=== PATIENT | female | born 1975 | race Two or more races ===

== ENCOUNTER 2016-12-06 11:13 | Emergency (ER) | payer MEDICAID ==
--- NOTE | 2016-12-06 13:05 | EDPHY ---
HPI/HX/ROS/PE/MDM Narrative: CHIEF COMPLAINT: Diarrhea HPI: This patient is a 41 year old female complaining of persistent diarrhea onset nine days ago. She visited her primary care physician 11/29/16, who recommended Imodium for symptom relief, and asked her to follow up in one week. She has taken nine doses of Imodium. Last night when trying to sleep, she developed cramping in her buttocks, legs, arms. She has been trying to not eat or drink much lately, and suspects she is dehydrated. She denies blood in her stool, fever, dysuria, or vomiting. She has no current pain. REVIEW OF SYSTEMS: Aside from elements discussed in the HPI, a comprehensive 10-point review of systems was reviewed and is negative. PMH: Back pain, mental health diagnoses, cervical cancer, c-sections, cholecystectomy SOCIAL HISTORY: No alcohol or drug use. Primary care provider at [facility]. Lives in [place]. PHYSICAL EXAM: General:Patient is alert, in no acute distress. ENT:Eyes are normal to inspection. ENT inspection normal. Neck: Normal inspection. Full range of motion. Respiratory:No respiratory distress. Breath sounds normal bilaterally. Cardiovascular: Regular rate and rhythm. Strong peripheral pulses. Normal cap refill. Abdomen:The abdomen is nontender to palpation. There are no peritoneal signs. There are normal bowel sounds. Back: Normal to inspection. No tenderness to palpation. Skin: Normal color. No rash. Warm and dry. Extremities: Normal appearance. Full range of motion. Neuro: Oriented x3. Normal motor function. Normal sensory function. Portions of this note were transcribed by an ED scribe. I personally performed the history, physical exam, and medical decision making; and confirm the accuracy of the information in the transcribed note. ED Course: Plan for labs including CBC, BMP, BHCG. Labs unremarkable. Patient unable to provide a stool sample at this time. Plan to discharge home in good condition. The patient will follow up with her primary care provider for continued evaluation. MDM: This is a non-toxic healthy-appearing female with a benign abdomen and complaint of diarrhea. She was unable to provide us a stool sample during her multi-hour ED stay. She is tolerating fluids by mouth and her vitals are normal. I have a low suspicion for abdominal emergency. I think she is safe for continued outpatient workup. - Data Points Laboratory Results: Laboratory Results 12/06/16 14:15 12/06/16 14:45 12/06/16 12/06/16 12/06/16 14:45 14:45 14:15 WBC 11.33 10^3/uL H 10^3/uL (3.80-9.50) RBC 4.69 10^6/uL 10^6/uL (4.18-5.33) Hgb 14.1 g/dL g/dL (12.6-16.3) Hct 43.0 % % (38.0-47.0) MCV 91.7 fL fL (81.5-99.8) MCH 30.1 pg pg (27.9-34.1) MCHC 32.8 g/dL g/dL (32.4-36.7) RDW 13.7 % % (11.5-15.2) Plt Count 218 10^3/uL 10^3/uL (150-400) MPV 9.8 fL fL (8.7-11.7) Neut % (Auto) 63.5 % % (39.3-74.2) Lymph % (Auto) 28.9 % % (15.0-45.0) [place] % (Auto) 5.8 % % (4.5-13.0) Eos % (Auto) 1.1 % % (0.6-7.6) Baso % (Auto) 0.4 % % (0.3-1.7) Nucleat RBC Rel Count 0.0 % % (0.0-0.2) Absolute Neuts (auto) 7.19 10^3/uL H 10^3/uL (1.70-6.50) Absolute Lymphs (auto) 3.28 10^3/uL H 10^3/uL (1.00-3.00) Absolute Monos (auto) 0.66 10^3/uL 10^3/uL (0.30-0.80) Absolute Eos (auto) 0.12 10^3/uL 10^3/uL (0.03-0.40) Absolute Basos (auto) 0.05 10^3/uL 10^3/uL (0.02-0.10) Absolute Nucleated RBC 0.00 10^3/uL 10^3/uL (0-0.01) Immature Gran % 0.3 % % (0.0-1.1) Immature Gran # 0.03 10^3/uL 10^3/uL (0.00-0.10) Sodium 138 mEq/L mEq/L (134-144) Potassium 3.6 mEq/L mEq/L (3.5-5.2) Chloride 108 mEq/L mEq/L (97-110) Carbon Dioxide 19 mEq/l L mEq/l (22-31) Anion Gap 11 mEq/L mEq/L (8-16) BUN 10 mg/dL mg/dL (7-23) Creatinine 0.7 mg/dL mg/dL (0.6-1.0) Estimated GFR > 60 Glucose 85 mg/dL mg/dL (70-100) Calcium 9.1 mg/dL mg/dL (8.5-10.4) Beta HCG, Qual NEGATIVE General Time Seen by Provider: 12/06/16 12:54 Initial Vital Signs: Initial Vital Signs Temperature (C) 36.5 C 12/06/16 11:20 Heart Rate 76 12/06/16 11:20 Respiratory Rate 16 12/06/16 11:20 Blood Pressure 119/100 H 12/06/16 11:20 O2 Sat (%) 94 12/06/16 11:20 O2 Delivery Mode Room Air Allergies/Adverse Reactions: No Known Allergies Allergy (Verified 12/06/16 11:27) Home Medications: Medication Instructions Recorded Wellbutrin 100mg (RX) 05/26/15 traZODONE 05/26/15 Gabapentin [Neurontin 400 MG (*)] 600 mg PO 12/06/16 busPIRone [Buspar (*)] 10 mg PO 12/06/16 Departure - Departure Disposition: Home, Routine, Self-Care Clinical Impression: Diarrhea Condition: Good Instructions: Acute Diarrhea (ED) Additional Instructions: 1. Follow up with your primary care provider this week for continued evaluation of symptoms. 2. Stay well hydrated. 3. Return to the Emergency Department for uncontrollable diarrhea or vomiting, severe abdominal pain, fever, chills, or other worsening of condition. Referrals: Nelly Cardoza PA [Primary Care Provider] - As per Instructions Report Scribed for: Hardy Ricks Report Scribed by: Leyla Sorto Date of Report: 12/06/16 Time of Report: 15:01
[2016-12-06 14:26] LABS: % IMMATURE GRANULYOCYTES 0.3 % (0.0-1.1); ABSOLUTE IMMATURE GRANULOCYTES 0.03 10^3/uL (0.00-0.10); ADD DIFF? NO; ADD MORPH? NO; ADD SCAN? NO; ATYPICAL LYMPHOCYTE FLAG 0 (0-99); FRAGMENT RBC FLAG 0 (0-99); HEMOGLOBIN 14.1 g/dL (12.6-16.3); LEFT SHIFT FLG 0 (0-99); LIPEMIA HEMOLYSIS FLAG 80 (0-99); MEAN CELL HEMOGLOBIN 30.1 pg (27.9-34.1); MEAN CELL HEMOGLOBIN CONCENTR. 32.8 g/dL (32.4-36.7); MEAN CELL VOLUME 91.7 fL (81.5-99.8); MEAN PLATELET VOLUME 9.8 fL (8.7-11.7); PLATELET CLUMPS FLAG 10 (0-99); PLATELET COUNT 218 10^3/uL (150-400); RED BLOOD CELL COUNT 4.69 10^6/uL (4.18-5.33); RED CELL DISTRIBUTION WIDTH 13.7 % (11.5-15.2)
[2016-12-06 15:14] LABS: ANION GAP 11 mEq/L (8-16); CALCIUM 9.1 mg/dL (8.5-10.4); CARBON DIOXIDE 19 mEq/l (22-31); CHLORIDE 108 mEq/L (97-110); CREATININE 0.7 mg/dL (0.6-1.0); GLOMERULAR FILTRATION RATE > 60; GLUCOSE 85 mg/dL (70-100); POTASSIUM 3.6 mEq/L (3.5-5.2); SODIUM 138 mEq/L (134-144)
[2016-12-06 16:28] VITALS: BP 141/87; PULSE 68; RESP 18; TEMP 97.9; O2SAT 97
== END 2016-12-06 16:28 | disposition home or self-care (01) ==
DX: R19.7 Diarrhea, unspecified (principal); Z85.41 Personal history of malignant neoplasm of cervix uteri

== ENCOUNTER 2017-02-01 10:46 | Emergency (ER) | payer MEDICAID ==
[2017-02-01 10:50] VITALS: BP 122/76; PULSE 74; RESP 18; TEMP 98.6; O2SAT 97
--- NOTE | 2017-02-01 11:13 | EDPHY ---
H & P Time Seen by Provider: 02/01/17 11:07 HPI/ROS: CHIEF COMPLAINT: "I dislocated my knee HISTORY OF PRESENT ILLNESS: 41-year-old female prior history of left patellar subluxations states that she was on the bus this morning, sat down, twisted and felt her left patella sublux. She immediately reduced it. She is complaining of continued pain but is able to bear weight. Never followed up with Orthopedics. No paresthesia. No direct trauma or fall. PHYSICAL EXAM (Prior to examination, patient consented to physical exam, hands were washed and my usual and customary physical exam procedures followed) 1) GENERAL: Well-developed, well-nourished, alert and oriented. Appears to be in no acute distress. 2) HEAD: Normocephalic 3) HEENT: Pupils equal, round, reactive to light bilaterally. 4) LUNGS: Breathing comfortably. 5) MUSCULOSKELETAL: Exam of the left knee shows patella midline, no evidence of patella [place] or [place] . Full flexion extension albeit with some discomfort to the medial aspect of the knee. . Compartments are soft. 6) SKIN: intact no tenting 7) VASCULAR: DP,PT pulses and cap refill present and brisk distally DIFFERENTIAL DIAGNOSIS: in no particular order including but not limited to fracture, sprain, compartment syndrome, septic arthritis, DVT Procedure: Splint A knee immobilizer splint was applied by ER crown and bridge technician. After application of the splint I returned and re-examined the patient. The splint was adequately immobilizing the joint and distal to the splint the patient's circulation and sensation were intact. Patient shows no signs of compartment syndrome. Was given orthopedic precautions. MEDICAL DECISION MAKING Serial evaluations performed on patient. No evidence of compartment syndrome. No evidence of patellar subluxation or knee dislocation. I discussed the limitations of x-ray in diagnosis of knee pain and injury. At this time I do not think that emergent MRI is currently indicated. However, I have recommended follow-up with Orthopedic surgery and provided this referral information. Informed the patient that outpatient MRI may be indicated. Doubt septic arthritis. Doubt compartment syndrome. Doubt DVT. Smoking Status: Current every day smoker Constitutional: Initial Vital Signs Temperature (C) 37 C 02/01/17 10:47 Heart Rate 74 02/01/17 10:47 Respiratory Rate 18 02/01/17 10:47 Blood Pressure 122/76 H 02/01/17 10:47 O2 Sat (%) 97 02/01/17 10:47 O2 Delivery Mode Room Air Allergies/Adverse Reactions: No Known Allergies Allergy (Verified 02/01/17 10:47) Home Medications: Medication Instructions Recorded Wellbutrin 100mg (RX) 05/26/15 traZODONE 05/26/15 Gabapentin [Neurontin 400 MG (*)] 600 mg PO 12/06/16 busPIRone [Buspar (*)] 10 mg PO 12/06/16 MDM/Departure - MDM Imaging Results: Imaging Impressions Knee X-Ray 02/01/17 11:10 Impression: Normal. No fracture or effusion. - Depart Disposition: Home, Routine, Self-Care Clinical Impression: Subluxation of left patella Qualifiers: Encounter type: initial encounter Qualified Code(s): S83.002A - Unspecified subluxation of left patella, initial encounter Condition: Good Instructions: Patellar Dislocation (ED) Additional Instructions: Return to the ER immediately if you experience discoloration, have worsening pain, numbness, tingling, or any other symptoms that concern you. If you received x-rays in the emergency department today, be advised, that ligamentous , tendon, muscular, and other non-bony injury cannot be fully ruled out. Try to keep your affected extremity elevated above the level of your chest, and keep cold packs on the affected area, for the next 48 hours. Referrals: Ryan Shay MD [Medical Doctor] - 5-7 days, call for appt.
== END 2017-02-01 13:00 | disposition home or self-care (01) ==
DX: S83.002A Unspecified subluxation of left patella, initial encounter (principal); F17.200 Nicotine dependence, unspecified, uncomplicated; X58.XXXA Exposure to other specified factors, initial encounter; Y99.8 Other external cause status; Y93.89 Activity, other specified